=== PATIENT | female | born 1990 | race Caucasian/White ===

== ENCOUNTER 2023-06-03 10:40 | Inpatient (IN) ==
[2023-06-03] MEDS ORDERED: SODIUM CHLORIDE 0.9% 2,000 ML IV ONE (11:02)
[2023-06-03] MEDS ORDERED: ONDANSETRON INJ 2 MG/ML 2 ML VIAL IV STA (11:02)
[2023-06-03] MEDS ORDERED: FAMOTIDINE 20MG IV PUSH 20 MG/5 ML SYR IV STA (11:02)
--- NOTE | 2023-06-03 11:05 | Emergency Department Note ---
Impression & Plan Biloma following surgery, S/P cholecystectomy, Postoperative intra-abdominal abscess, Deaf, Leukocytosis ED Provider Note NAME: KARY STINSON AGE: 32 SEX: F ARRIVES VIA: Walk-In INFORMANT: Patient ED PROVIDER(S): Gaetano Merrill MD CHIEF COMPLAINT: Nausea, s/p cholecystectomy PLAN: Disposition: Admit MEDICAL DECISION MAKING: The patient is a pleasant 32-year-old deaf woman who communicates via lipreading and ASL who presents to the emergency department accompanied by her friend for evaluation of nausea for the couple of days after she ate pizza in the setting of having a cholecystectomy approximately 3 weeks ago in [facility] at [facility]. Patient acknowledges that this was the first time she ate a meal such as this after her surgery. She reports having some loose stool afterwards. She reports she has had some constipation fluctuating with loose stool since her surgery and has needed an enema at certain points. They report that the patient was hospitalized for a week or so and describes having MIKE drains following surgery which were removed after 2-3 days. They report that even after discharge they were noticing some drainage from one of the MIKE sites for which they describe being reassured that this will resolve with time and subsequently has. They deny any fevers, cough, congestion, urinary symptoms. She reports that she has had abdominal bloating and pain since the surgery that has persisted. She is burping more and has been taking Gas-X. History obtained using iPad embedded firmware engineer. On my evaluation the patient is no acute distress, afebrile stable vital signs. She does have mild to moderate tenderness of the upper abdomen without guarding or rebound. WBC 16.6K with neutrophil predominance but no left shift, nonspecific. Hemoglobin within normal limits. Platelets 477K nonspecific and likely reacti ve. Chemistry without metabolic acidosis. ALT mildly elevated 96 and alk phos of 144 and LFTs otherwise normal including normal total and direct bilirubin. Lipase is normal. hCG negative. UA 1+ ketones consistent the patient clinically dry appearance. CT abdomen/pelvis was performed and demonstrates complex multiloculated fluid collection within the gallbladder fossa that measures 6 x 6.5 x 7 cm and extends along the anterior aspect of the gastroduodenal junction with surrounding inflammation as well as erosive internal complexity/hyperdensity. Note is made of CBD stent in place without intrahepatic ductal dilatation. Differential diagnosis includes postoperative hematoma/seroma, biloma, and or abscess. Note of complex hyperdense material within the collection may represent small amount of extravasated contrast or less likely retained gallstones. Case was discussed with general surgery on-call Dr. Farley who was able to review patient's imaging. Appreciate consultation and recommendations. Agrees that patient can be managed at our facility at this time as intervention is not considered to be surgical but anticipated to be addressed through IR who he available on Sunday and in the interim can be admitted to hospital service for IV antibiotics. She will be available for inpatient team consultation. I did review this plan with the patient and her friend/partner at the bedside and they did agree with this plan. Treatment initiated with IV Zosyn. Case was discussed with Dr. Denton, [facility] hospitalist, who will evaluate the patient for admission. Triage Nursing notes reviewed and agree them. Prior/outside medical records reviewed Vital Signs: reviewed Differential diagnosis: Gastroenteritis, food borne illness, infections, appendicitis, diverticulitis, inflammatory bowel disease, obstruction, GI bleed, biliary pathology, volvulus, as well as other pathologies. ER treatment provided: See below. Diagnostics interpreted by me: Cardiac Monitoring: An order for continuous cardiac monitoring was placed and demonstrated sinus tachycardia, 121 bpm, no ectopy. Laboratory studies: See below Imaging studies: See below Consultation(s): Dr. Farley, General surgery on-call. Dr. Denton, [facility] hospitalist. HPI: The patient is a pleasant 32-year-old deaf woman who communicates via lipreading and ASL who presents emerged department accompanied by her friend for evaluation of nausea for the couple of days after she ate pizza in the setting of having a cholecystectomy approximately 3 weeks ago in [facility] at [facility]. Patient acknowledges that this was the first time she ate a meal such as this after her surgery. She reports having some loose stool afterwards. She reports she has had some constipation fluctuating with loose stool since her surgery and has needed an enema at certain points. They report that the patient was hospitalized for a week or so and describes having MIKE drains following surgery which were removed after 2-3 days. They report that even after discharge they were noticing some drainage from one of the MIKE sites for which they describe being reassured that this will resolve with time and subsequently has. They deny any fevers, cough, congestion, urinary symptoms. She reports that she has had abdominal bloating and pain since the surgery that has persisted. She is burping more and has been taking Gas-X. History obtained using iPad embedded firmware engineer. ROS: See above HPI for pertinent positives & negatives. A total of 10 systems reviewed and were otherwise negative. VITALS:See Below PHYSICAL EXAMINATION: GENERAL: Awake, alert, well-appearing, in no distress HENT: Normocephalic, atraumatic. Oropharynx with dry mucous membranes and otherwise unremarkable. EYES: Normal conjunctiva. Sclera non-icteric. NECK: Supple. No nuchal rigidity. FROM. No JVD. RESPIRATORY: Clear to auscultation. CARDIAC: Regular rate, normal rhythm. Extremities warm and well perfused. Pulses equal. ABDOMEN: Soft, non-distended. Mild-moderate upper abdominal tenderness to palpation. No rebound or guarding. No masses. RECTAL: Deferred. MUSCULOSKELETAL: Chest examination reveals no tenderness. The back is symmetrical on inspection without obvious abnormality. There is no CVA tendern ess to palpation. No joint edema. LOWER EXTREMITIES: Calves are equal size bilaterally and non-tender. No edema. No discoloration. NEURO: Normal sensorium. No sensory or motor deficits noted. SKIN: No rash or jaundice noted. Gaetano Merrill MD Past Med/Surg History Medical History Biloma following surgery Deaf Surgical History S/P cholecystectomy Social History Smoking Status: Never smoker Hx Alcohol Use: No Hx Substance Use: No Preferred Language: Production Service Manager Required: Yes Beliefs That Will Affect Care: None Current Living Situation: Spouse Feels Safe at Home: Yes Safety Concerns: Feels Safe At This Time Allergies Allergies Allergy/AdvReac Type Severity Reaction Status Date / Time No Known Allergies Allergy Unverified 06/03/23 15:54 Home Meds Home Medications Medication Instructions Recorded Confirmed cyclobenzaprine 10 mg tablet 10 mg PO Q8H 06/03/23 06/03/23 gabapentin 300 mg capsule 300 mg PO Q8H 06/03/23 06/03/23 Results & Data (ED) Vital Signs Vital Signs - 24 hr 06/03/23 10:51 06/03/23 12:29 06/03/23 14:21 Temperature 36.6 C Temperature Source Temporal Artery Scan Pulse Rate 121 H 96 H Pulse Rate [Right Finger] 88 Pulse Rhythm [Right Finger] Regular Pulse Strength [Right Finger] Normal Respiratory Rate 16 16 Respiratory Effort / Characteristics Non-Labored Non-Labored Respiratory Depth Normal Normal Respiratory Pattern Regular Blood Pressure 129/86 Blood Pressure [Left Arm] 115/78 Blood Pressure Mean 100 Blood Pressure Mean [Left Arm] 90 Blood Pressure Position [Left Arm] Sitting Pulse Oximetry 97 99 Oxygen Delivery Method Room Air Room Air Sepsis Recent Fever Within 48 Hours No Sepsis New/Unexplained Change in Mental Status No Sepsis Action Taken by Nursing No Action Required Laboratory Data Attestation: I reviewed the patient's lab results. 06/03/23 11:52 06/03/23 11:52 Lab Results 06/03/23 06/03/23 06/03/23 Range/Units 11:52 11:52 11:52 WBC 16.64 H (4.8-10.8) K/ul RBC 4.07 L (4.20-5.40) M/uL Hgb 12.0 (12.0-16.0) g/dl Hct 36.6 L (37.0-47.0) % MCV 89.9 (80.0-100.0) fL MCH 29.5 (25.0-34.0) pg MCHC 32.8 (32.0-36.0) g/dL RDW Std Deviation 43.4 (36.4-46.3) fL RDW Coeff of Paolo 13.2 (11.5-14.5) % Plt Count 477 H (130-400) K/uL MPV 10.6 (9.4-12.4) fL Immature Gran % (Auto) 0.3 % Neut % (Auto) 84.1 % Lymph % (Auto) 6.5 % [place] % (Auto) 8.9 % Eos % (Auto) 0.0 % Baso % (Auto) 0.2 % Neut # (Auto) 13.99 H (1.40-6.50) K/uL Lymph # (Auto) 1.08 L (1.20-3.40) K/uL [place] # (Auto) 1.48 H (0.11-0.59) K/uL Eos # (Auto) 0.00 (0.00-0.50) K/uL Baso # (Auto) 0.04 (0.00-0.20) K/uL Immature Gran # (Auto) 0.05 (0.01-0.20) K/uL Sodium 136 (136-145) mmol/L Potassium 3.6 (3.5-5.1) mmol/L Chloride 102 (98-107) mmol/L Carbon Dioxide 25 (21-32) mmol/L Anion Gap 9 (3-11) BUN 10 (6-23) mg/dl Creatinine 0.71 (0.6-1.2) mg/dl Est Cr Clr Drug Dosing Not Reportable Est GFR ( Amer) 131.5 ml/min Est GFR (Non-Af Amer) 113.5 ml/min BUN/Creatinine Ratio 14.1 (10-20) Glucose 99 (70-99(Fasting)) mg/dl Calcium 9.3 (8.6-10.3) mg/dl Total Bilirubin 0.6 (0.2-1.0) mg/dl Direct Bilirubin 0.1 (0-0.2) mg/dl AST 25 (13-39) U/L ALT 96 H (7-52) U/L Alkaline Phosphatase 144 H (34-104) U/L Total Protein 8.0 (6.0-8.3) gm/dl Albumin 3.8 (3.4-5.0) gm/dl Globulin 4.2 H (2.5-4.0) gm/dl Albumin/Globulin Ratio 0.9 (0.9-2) Lipase 14 (11-82) U/L HCG, Qual Negative (Negative) Urine Color Urine Appearance (Clear) Urine pH (4.5-7.5) Ur Specific [place] (1.000-1.030) Urine Protein (Negative) Urine Glucose (UA) (Negative) Urine Ketones (Negative) Urine Blood (Negative) Urine Nitrite (Negative) Urine Bilirubin (Negative) Urine Urobilinogen (Negative) Ur Leukocyte Esterase (Negative) Urine RBC (0-4) /hpf Urine WBC (0-5) /hpf Ur Epithelial Cells (0-5) /lpf Urine Bacteria (Negative) Urine Mucus (None Prsent) 06/03/23 Range/Units 12:33 WBC (4.8-10.8) K/ul RBC (4.20-5.40) M/uL Hgb (12.0-16.0) g/dl Hct (37.0-47.0) % MCV (80.0-100.0) fL MCH (25.0-34.0) pg MCHC (32.0-36.0) g/dL RDW Std Deviation (36.4-46.3) fL RDW Coeff of Paolo (11.5-14.5) % Plt Count (130-400) K/uL MPV (9.4-12.4) fL Immature Gran % (Auto) % Neut % (Auto) % Lymph % (Auto) % [place] % (Auto) % Eos % (Auto) % Baso % (Auto) % Neut # (Auto) (1.40-6.50) K/uL Lymph # (Auto) (1.20-3.40) K/uL [place] # (Auto) (0.11-0.59) K/uL Eos # (Auto) (0.00-0.50) K/uL Baso # (Auto) (0.00-0.20) K/uL Immature Gran # (Auto) (0.01-0.20) K/uL Sodium (136-145) mmol/L Potassium (3.5-5.1) mmol/L Chloride (98-107) mmol/L Carbon Dioxide (21-32) mmol/L Anion Gap (3-11) BUN (6-23) mg/dl Creatinine (0.6-1.2) mg/dl Est Cr Clr Drug Dosing Est GFR ( Amer) ml/min Est GFR (Non-Af Amer) ml/min BUN/Creatinine Ratio (10-20) Glucose (70-99(Fasting)) mg/dl Calcium (8.6-10.3) mg/dl Total Bilirubin (0.2-1.0) mg/dl Direct Bilirubin (0-0.2) mg/dl AST (13-39) U/L ALT (7-52) U/L Alkaline Phosphatase (34-104) U/L Total Protein (6.0-8.3) gm/dl Albumin (3.4-5.0) gm/dl Globulin (2.5-4.0) gm/dl Albumin/Globulin Ratio (0.9-2) Lipase (11-82) U/L HCG, Qual (Negative) Urine Color Yellow Urine Appearance Clear (Clear) Urine pH 5.5 (4.5-7.5) Ur Specific [place] >= 1.030 (1.000-1.030) Urine Protein 1+ H (Negative) Urine Glucose (UA) Negative (Negative) Urine Ketones 1+ H (Negative) Urine Blood Trace-lysed H (Negative) Urine Nitrite Negative (Negative) Urine Bilirubin 1+ H (Negative) Urine Urobilinogen Negative (Negative) Ur Leukocyte Esterase Negative (Negative) Urine RBC 0-4 (0-4) /hpf Urine WBC 0-5 (0-5) /hpf Ur Epithelial Cells 5-10 H (0-5) /lpf Urine Bacteria 1+ H (Negative) Urine Mucus Present A (None Prsent) Administered Medications Enoxaparin Sodium (Enoxaparin Inj 40 Mg/0.4 Ml Syr) 40 mg SQ Q24H [facility] Stop: 07/03/23 20:59 Last Admin: 06/03/23 20:54 Dose: 40 mg Documented By: AMANDA Hydromorphone HCl (Hydromorphone Inj 1 Mg/Ml Syringe) 1 mg IV Q3H PRN PRN Reason: Severe Pain (7,8,9,10) on NRS Stop: 06/17/23 19:11 Last Admin: 06/03/23 20:24 Dose: 1 mg Documented By: AMANDA Acetaminophen (Ofirmev) 1,000 mg in 100 mls @ 400 mls/hr IV Q8H PRN PRN Reason: Fever/Mild Pain (Pain 1,2,3) Stop: 06/06/23 19:11 Last Infusion: 06/03/23 21:10 Dose: 0 mls/hr Documented By: Admin: 06/03/23 20:24 Dose: 400 mls/hr Documented By: AMANDA Lactated Ringer's (Lr) 1,000 mls @ 120 mls/hr IV .Q8H20M [facility] Stop: 07/03/23 19:11 Last Admin: 06/03/23 20:23 Dose: 120 mls/hr Documented By: AMANDA Discontinued Medications Sodium Chloride (Nss 1000ml) 2,000 mls @ 999 mls/hr IV .Q2H1M ONE Stop: 06/03/23 13:02 Last Infusion: 06/03/23 16:53 Dose: 0 mls/hr Documented By: Admin: 06/03/23 11:54 Dose: 999 mls/hr Documented By: ROLY Famotidine (Pepcid 20mg Iv Push) 20 mg in 5 mls @ 2.5 mls/min IV NOW STA Stop: 06/03/23 11:03 Last Admin: 06/03/23 12:23 Dose: 2.5 mls/min Documented By: ROLY Acetaminophen (Ofirmev) 1,000 mg in 100 mls @ 400 mls/hr IV NOW STA Stop: 06/03/23 12:09 Last Infusion: 06/03/23 16:52 Dose: 400 mls/hr Documented By: Admin: 06/03/23 12:44 Dose: 400 mls/hr Documented By: ROLY Piperacillin Sod/Tazobactam Sod (Zosyn) 4.5 gm in 120 mls @ 240 mls/hr IV NOW ONE Stop: 06/03/23 16:13 Last Infusion: 06/03/23 19:52 Dose: 0 mls/hr Documented By: Admin: 06/03/23 16:53 Dose: 240 mls/hr Documented By: ROLY Ioversol (Optiray 320 100ml) 94 ml IV ONCE ONE Stop: 06/03/23 13:42 Last Admin: 06/03/23 13:42 Dose: 94 ml Documented By: BAILEY Miscellaneous (Patient's Height &/Or Weight Needed) 1 each N/A NOW STA Stop: 06/03/23 19:16 Last Admin: 06/03/23 20:53 Dose: 1 each Documented By: AMANDA Ondansetron HCl (Ondansetron Inj 2 Mg/Ml 2 Ml Vial) 4 mg IV NOW STA Stop: 06/03/23 11:03 Last Admin: 06/03/23 12:23 Dose: 4 mg Documented By: ROLY Imaging Data Radiologist's Impression: Abdomen/Pelvis CT 06/03/23 11:45 CT SCAN OF THE ABDOMEN AND PELVIS WITH IV CONTRAST CLINICAL HISTORY: Nausea and vomiting. Generalized abdominal pain. 3 weeks status post cholecystectomy. COMPARISON STUDY: No priors. TECHNIQUE: Following the IV administration of 94 cc of Optiray 320, CT scan of the abdomen and pelvis is performed from the lung bases to the proximal femora. Images are reviewed in the axial, sagittal, and coronal planes. IV contrast was administered without complication. A dose lowering technique was utilized adhering to the principles of ALARA. CT DOSE: 1486.82 mGy.cm FINDINGS: Lung bases: The heart is normal in size and without pericardial effusion. The lung bases are clear. Liver: The contrast-enhanced liver is normal in size, contour, and attenuation. There is no intrahepatic biliary ductal dilatation. The hepatic veins and portal veins are patent. A fluid collection in gallbladder fossa scallops the adjacent hepatic capsule. See below. Gallbladder: The gallbladder is surgically absent noting clips in the gallbladder fossa. There is a complex multiloculated fluid collection within the gallbladder fossa. This measures approximately 6 x 6.5 x 7 cm in aggregate dimension as seen on image 28, and extends along the anterior aspect of the ga stroduodenal junction. There is surrounding inflammation, as well as erosive internal complexity/hyperdensity. These are best seen on axial image #111. A common bile duct stent is in place. Spleen: Normal in size and attenuation. Pancreas: Unremarkable. Adrenal glands: Unremarkable. Kidneys: The contrast enhanced kidneys are normal in size and without hydronephrosis. The kidneys enhance symmetrically. Abdominal vasculature: The abdominal aorta is normal in course and caliber. Bowel: The fluid collection discussed above mildly narrows the lumen of the adjacent stomach and duodenum. No bowel obstruction is seen. The appendix is well-visualized and normal. Peritoneum: There is no intraperitoneal free air or abdominal ascites. There is a small fat-containing umbilical hernia. Induration within the right abdominal wall is likely related to the laparoscopy. Lymphadenopathy: None. Pelvic viscera: The bladder, uterus, and adnexa are normal as visualized noting bilateral ovarian follicles. There is trace free fluid in the cul-de-sac. Skeletal structures: No lytic or blastic lesions are seen. IMPRESSION: 1. The gallbladder is surgically absent. 2. There is a complex/multiloculated fluid collection identified in the gallbladder fossa extending along the anterior aspect of the stomach/duodenum as detailed above. Differential considerations include a postoperative hematoma, seroma, biloma, and/or abscess. 3. Complex/hyperdense material within the collection may represent debris. A small amount of extravasated contrast or less likely retained gallstones could also potentially have this appearance. Clinical correlation will be essential. 4. A common bile duct stent is in place and the intrahepatic bile ducts are normal in caliber. 5. The fluid collection mildly narrows the lumen of the distal stomach and duodenum. 6. Trace free fluid in the cul-de-sac is nonspecific and likely physiologic. 7. Additional findings as above. ACT 112: Negative or not required by law. Electronically signed by: Robert Blair M.D. 06/03/2023 1:57 PM Discharge Plan Visit Data Chief Complaint: Nausea Stated Complaint: NAUSEA S/P GALL BLADDER REMOVAL ED Provider: Gaetano Merrill Discharge Problem: Biloma following surgery, S/P cholecystectomy, Postoperative intra-abdominal abscess, Deaf, Leukocytosis Patient Disposition: Admitted As Inpatient Discharge Instructions Interventions: ED Discharge Assessment Last Done: 06/03/23 19:53
[2023-06-03] MEDS ORDERED: ACETAMINOPHEN 1,000 MG/100 ML VIAL IV STA (11:55)
[2023-06-03 12:23] LABS: Basophils # (auto) 0.04 K/uL (0.00-0.20); Basophils % (auto) 0.2 %; Hematocrit (blood only) 36.6 % (37.0-47.0); Immature Granulocytes # (auto) 0.05 K/uL (0.01-0.20); Immature Granulocytes % (auto) 0.3 %; Lymphocytes # (auto) 1.08 K/uL (1.20-3.40); Lymphocytes % (auto) 6.5 %; Mean Corpuscular Hemoglobin 29.5 pg (25.0-34.0); Mean Corpuscular Hgb Conc 32.8 g/dL (32.0-36.0); Mean Corpuscular Volume 89.9 fL (80.0-100.0); Mean Platelet Volume 10.6 fL (9.4-12.4); Monocytes # (auto) 1.48 K/uL (0.11-0.59); Monocytes % (auto) 8.9 %; Neutrophils # (auto) 13.99 K/uL (1.40-6.50); Neutrophils % (auto) 84.1 %; Platelet Count 477 K/uL (130-400); RDW Coefficient of Variation 13.2 % (11.5-14.5); RDW Standard Deviation 43.4 fL (36.4-46.3); Red Blood Count 4.07 M/uL (4.20-5.40); White Blood Count 16.64 K/ul (4.8-10.8)
[2023-06-03 12:43] LABS: Alanine Aminotransferase 96 U/L (7-52); Albumin Globulin Ratio 0.9 (0.9-2); Albumin Level 3.8 gm/dl (3.4-5.0); Alkaline Phosphatase 144 U/L (34-104); Anion Gap 9 (3-11); Aspartate Aminotransferase 25 U/L (13-39); BUN Creatinine Ratio 14.1 (10-20); Bilirubin Direct 0.1 mg/dl (0-0.2); Bilirubin,Total 0.6 mg/dl (0.2-1.0); Blood Urea Nitrogen 10 mg/dl (6-23); Calcium 9.3 mg/dl (8.6-10.3); Carbon Dioxide 25 mmol/L (21-32); Chloride 102 mmol/L (98-107); Est GFR (African American) 131.5 ml/min; Est GFR (Non-African American) 113.5 ml/min; Globulin 4.2 gm/dl (2.5-4.0); Glucose 99 mg/dl (70-99(Fasting)); Lipase 14 U/L (11-82); Potassium 3.6 mmol/L (3.5-5.1); Pregnancy Test, Serum Negative (Negative); Sodium 136 mmol/L (136-145)
[2023-06-03 13:08] LABS: Appearance Urine Clear (Clear); Bilirubin Urine 1+ (Negative); Blood Urine Trace-lysed (Negative); Color Urine Yellow; Glucose Urine UA Negative (Negative); Ketones Urine 1+ (Negative); Leukocyte Esterase Urine Negative (Negative); Nitrite Urine Negative (Negative); Protein Urine 1+ (Negative); Specific Gravity Urine >= 1.030 (1.000-1.030); Urobilinogen Urine Negative (Negative); pH Urine 5.5 (4.5-7.5)
[2023-06-03 13:15] LABS: Bacteria Urine 1+ (Negative); Mucus Urine Present (None Prsent); RBC Urine 0-4 /hpf (0-4); WBC Urine 0-5 /hpf (0-5)
[2023-06-03] MEDS ORDERED: OPTIRAY 320 100ml IV ONE (13:41)
--- NOTE | 2023-06-03 14:00 | CT Scan Report ---
CT SCAN OF THE ABDOMEN AND PELVIS WITH IV CONTRAST CLINICAL HISTORY: Nausea and vomiting. Generalized abdominal pain. 3 weeks status post cholecystect anika. COMPARISON STUDY: No priors. TECHNIQUE: Following the IV administration of 94 cc of Optiray 320, CT scan of the abdomen and pelvi s is performed from the lung bases to the proximal femora. Images are reviewed in the axial, sagittal , and coronal planes. IV contrast was administered without complication. A dose lowering technique wa s utilized adhering to the principles of ALARA. CT DOSE: 1486.82 mGy.cm FINDINGS: Lung bases: The heart is normal in size and without pericardial effusion. The lung bases are clear. Liver: The contrast-enhanced liver is normal in size, contour, and attenuation. There is no intrahepa tic biliary ductal dilatation. The hepatic veins and portal veins are patent. A fluid collection in g allbladder fossa scallops the adjacent hepatic capsule. See below. Gallbladder: The gallbladder is surgically absent noting clips in the gallbladder fossa. There is a c omplex multiloculated fluid collection within the gallbladder fossa. This measures approximately 6 x 6.5 x 7 cm in aggregate dimension as seen on image 28, and extends along the anterior aspect of the g astroduodenal junction. There is surrounding inflammation, as well as erosive internal complexity/hyp erdensity. These are best seen on axial image #111. A common bile duct stent is in place. Spleen: Normal in size and attenuation. Pancreas: Unremarkable. Adrenal glands: Unremarkable. Kidneys: The contrast enhanced kidneys are normal in size and without hydronephrosis. The kidneys enh ance symmetrically. Abdominal vasculature: The abdominal aorta is normal in course and caliber. Bowel: The fluid collection discussed above mildly narrows the lumen of the adjacent stomach and duod enum. No bowel obstruction is seen. The appendix is well-visualized and normal. Peritoneum: There is no intraperitoneal free air or abdominal ascites. There is a small fat-containin g umbilical hernia. Induration within the right abdominal wall is likely related to the laparoscopy. Lymphadenopathy: None. Pelvic viscera: The bladder, uterus, and adnexa are normal as visualized noting bilateral ovarian fol licles. There is trace free fluid in the cul-de-sac. Skeletal structures: No lytic or blastic lesions are seen. IMPRESSION: 1. The gallbladder is surgically absent. 2. There is a complex/multiloculated fluid collection identified in the gallbladder fossa extending a long the anterior aspect of the stomach/duodenum as detailed above. Differential considerations inclu de a postoperative hematoma, seroma, biloma, and/or abscess. 3. Complex/hyperdense material within the collection may represent debris. A small amount of extravas ated contrast or less likely retained gallstones could also potentially have this appearance. Clinica l correlation will be essential. 4. A common bile duct stent is in place and the intrahepatic bile ducts are normal in caliber. 5. The fluid collection mildly narrows the lumen of the distal stomach and duodenum. 6. Trace free fluid in the cul-de-sac is nonspecific and likely physiologic. 7. Additional findings as above. ACT 112: Negative or not required by law. Electronically signed by: Robert Blair M.D. 06/03/2023 1:57 PM
[2023-06-03] MEDS ORDERED: PIPERACILLIN/TAZOBACTAM 4.5 GM/120 ML BAG IV ONE (15:44)
--- NOTE | 2023-06-03 15:58 | History & Physical Report ---
Date of Service June 03, 2023 Assessment & Plan (1) Biloma following surgery: Plan: Postoperative abscess versus seroma Patient with cholecystectomy 3 weeks ago Presents with nausea/vomiting/diarrhea after eating pizza CTA/P: CTA/P with IV contrast: Gallbladder absent. Complex multiloculated fluid collection in gallbladder fossa suspicious for postoperative hematoma/seroma/Bileoma/abscess. Bile duct stent in place. Trace free fluid in cul-de-sac nonspecific. Patient does have a leukocytosis Renal function normal - Surgery consulted. Case reviewed w/ Dr. Farley. OK to handle here, suspect bilioma. [place] will be here sunday, recommended IR guided on Sunday. Until then recommend n.p.o. today, clears tomorrow if no pain otherwise continue n.p.o. on . Continue IV antibiotics through drainage on Sunday. If IR is not able to drain this then can be approached endoscopically, general surgical approach not recommended Zosyn continued UTI UA infected appearing, covered with antibiotics as noted above Follow UCx Deafness At baseline, no change. 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 Hold prior to IR drainage. Diet: N.p.o. Disposition: Medical/surgical CODE STATUS: Full code (2) Postoperative intra-abdominal abscess: (3) Deaf: History of Present Illness Primary Care Provider: NO PCP Darling is a 32-year-old patient with deafness who communicates via lipreading and sign language who presents with nausea/vomiting after eating pizza. She had a cholecystectomy 3 weeks ago this was her first greasy meal since that time. Loose bowel movements after patient did have issues with constipation following her cholecystectomy and had prolonged MIKE drains which were removed after 2 to 3 weeks. 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 No GIB. Vomiting without green/bile/blood [facility] with Ex Tasha with who she is on good terms and helps care for her, no family in [place] to help while she was recovering. No other medhx Medical History: Reviewed Medications: Reviewed Surgical History: Reviewed Family history: Reviewed Allergies: Reviewed Social History: No tobacco/etoh hx Code Status: Full Allergies Allergy/AdvReac Type Severity Reaction Status Date / Time No Known Allergies Allergy Unverified 06/03/23 15:54 Home Medications Medication Instructions Recorded Confirmed Type cyclobenzaprine 10 mg tablet 10 mg PO Q8H 06/03/23 06/03/23 History gabapentin 300 mg capsule 300 mg PO Q8H 06/03/23 06/03/23 History Past Med/Surg History Medical History (Updated 06/03/23 @ 16:34 by Ricardo Denton MD) Biloma following surgery Deaf Surgical History (Updated 06/03/23 @ 16:32 by Ricardo Denton MD) S/P cholecystectomy Social History Preferred Language: Paragu[place] Review of Systems Review of Systems: All systems reviewed & are unremarkable except as noted in HPI & below Physical Exam Physical Exam: General: A&Ox3. NAD. Cooperative. HEENT: Atraumatic, normocephalic. Vision intact. Deaf, communicates via writing, lip reading, and ASL. Pulm: CTAB A&P. -wheezes, -rales, -rhonchi. Symmetrical chest rise. No increased work of breathing. No respiratory distress. Cardiac: RRR, -mrg. Radial pulses intact and symmetrical. Abdominal: 4x well healed abdominal incisions. RUQ ttp. no rebound, abd soft. No fluid expressed from surgical sites, RLQ site not yet completely healed otherwise sites healing and no dehiscence. BS present Results & Data Results & Data Vital Signs (Past 12 Hours) Vital Signs Temp Pulse Pulse Resp BP BP Pulse Ox 06/03/23 14:21 88 16 115/78 99 06/03/23 12:29 96 H 06/03/23 10:51 36.6 C 121 H 16 129/86 97 O2 Del Method 06/03/23 14:21 Room Air 06/03/23 12:29 06/03/23 10:51 Room Air PG Care Time/CCT Total # of Minutes Spent Total Time Spent with Patient: Total time spent is greater than 50% in coordination of care (as documented) at patient's floor/unit and/or counseling patient: Coding Level of Care Code 12569 INT INP/OBS CARE MIN Diagnoses Biloma following surgery T81.89XA; K66.8 Postoperative intra-abdominal abscess T81.43XA Deaf H91.90
[2023-06-03] MEDS ORDERED: Patient's HEIGHT &/or WEIGHT Needed STA (19:15)
[2023-06-03] MEDS: LACTATED RINGER'S 1,000 ML IV SCH (20:23)
[2023-06-03] MEDS: ACETAMINOPHEN 1,000 MG/100 ML VIAL IV PRN (20:24)
[2023-06-03] MEDS: HYDROmorphone INJ 1 MG/ML SYRINGE IV PRN (20:24)
[2023-06-03] MEDS: ENOXAPARIN INJ 40 MG/0.4 ML SYR SQ SCH (20:54)
[2023-06-03] MEDS: PIPERACILLIN/TAZOBACTAM 4.5 GM in DEXTROSE 5% 100 ML IV SCH (21:36)
[2023-06-04] MEDS: LACTATED RINGER'S 1,000 ML IV SCH ×2 (04:58→12:23)
[2023-06-04] MEDS: PIPERACILLIN/TAZOBACTAM 4.5 GM in DEXTROSE 5% 100 ML IV SCH ×3 (04:58→21:19)
[2023-06-04] MEDS: ACETAMINOPHEN 1,000 MG/100 ML VIAL IV PRN ×2 (05:34→19:36)
[2023-06-04 07:30] LABS: Basophils # (auto) 0.06 K/uL (0.00-0.20); Basophils % (auto) 0.4 %; Eosinophils # (auto) 0.04 K/uL (0.00-0.50); Eosinophils % (auto) 0.3 %; Hematocrit (blood only) 30.6 % (37.0-47.0); Hemoglobin 9.9 g/dl (12.0-16.0); Immature Granulocytes # (auto) 0.05 K/uL (0.01-0.20); Immature Granulocytes % (auto) 0.3 %; Lymphocytes # (auto) 0.91 K/uL (1.20-3.40); Lymphocytes % (auto) 6.3 %; Mean Corpuscular Hemoglobin 29.2 pg (25.0-34.0); Mean Corpuscular Hgb Conc 32.4 g/dL (32.0-36.0); Mean Corpuscular Volume 90.3 fL (80.0-100.0); Mean Platelet Volume 10.4 fL (9.4-12.4); Monocytes # (auto) 1.34 K/uL (0.11-0.59); Monocytes % (auto) 9.2 %; Neutrophils # (auto) 12.09 K/uL (1.40-6.50); Neutrophils % (auto) 83.5 %; Platelet Count 395 K/uL (130-400); RDW Coefficient of Variation 13.3 % (11.5-14.5); RDW Standard Deviation 44.3 fL (36.4-46.3); Red Blood Count 3.39 M/uL (4.20-5.40); White Blood Count 14.49 K/ul (4.8-10.8)
[2023-06-04 07:34] LABS: BUN Creatinine Ratio 9.6 (10-20); Calcium 8.3 mg/dl (8.6-10.3); Creatinine Clr Calc Pharmacy 127.9 ml/min; Est GFR (African American) 127.2 ml/min; Est GFR (Non-African American) 109.7 ml/min; Magnesium 1.9 mg/dl (1.7-2.4); Phosphorus 2.7 mg/dl (2.5-4.9); Potassium 3.6 mmol/L (3.5-5.1)
[2023-06-04] MEDS: HYDROmorphone INJ 0.5 MG/0.5 ML SYR IV PRN ×3 (07:42→19:23)
[2023-06-04] MEDS: ONDANSETRON INJ 2 MG/ML 2 ML VIAL IV PRN (12:23)
--- NOTE | 2023-06-04 15:55 | Hospitalist Progress Note ---
Date of Service June 04, 2023 Assessment & Plan (1) Biloma following surgery: Plan: White blood cell count is mildly elevated but she does not appear to be ill enou gh to have a right upper quadrant abscess. She had cholecystectomy [address] scan reveals fluid in the gallbladder fossa with a common bile duct stent present. The gallbladder has been removed. This was done about 3 weeks ago at an outside hospital. Interventional radiology to place right upper quadrant drain tomorrow, June 05. Continue Zosyn for now, day 2. Appreciate surgery consultation and recommendations. (2) Postoperative intra-abdominal abscess: Plan: Right upper quadrant fluid collection in the gallbladder bed may simply be seroma. Anticipate drainage procedure tomorrow, June 05 (3) Urinary tract infection: Plan: Suspected on admission. Continue current IV antibiotic therapy. Await final urine culture results (4) Deaf: Plan: Supportive care (5) Tachycardia: Plan: Appears to be sinus tachycardia. EKG pending. Plan Anticipate eventual discharge to home Admission and Anticipated Discharge Date Admission Date: June 03, 2023 Subjective Alert and oriented. No complaints. Anticipate right upper quadrant drain placement by interventional radiology tomorrow, June 05. She is mildly tachycardic and EKG is pending. She remains on intravenous Zosyn. She is afebrile. White blood cell count trending down. Will allow clear liquids and decrease IV fluids. She is status post cholecystectomy at another hospital about 3 weeks ago Review of Systems 2 Review of Systems: Constitutional-no fever or chills ENT-no blurred vision, no double vision, no epistaxis, no sore throat Respiratory-no cough, no wheezing, no shortness of breath Cardiac-no palpitations, no chest pain, no syncope GI-intermittent nausea after eating. No vomiting, diarrhea, melena, hematochezia -no urinary retention, no urinary incontinence, no dysuria, no hematuria Musculoskeletal-no joint pain, no muscle tenderness Skin-no bruising, no rashes, no pruritus Neuro-no isolated weakness, no paresthesia, no weakness Psych-no depression, no anxiety Physical Exam Physical Exam: General-alert and oriented x3, no fevers, no chills HEENT-head atraumatic and normocephalic, pupils equal and reactive to light, extraocular muscles intact. She is deaf Neck-no lymphadenopathy or thyromegaly, trachea midline Chest-clear to auscultation percussion. No rales wheezing or rhonchi Cardiac-slightly tachycardic regular rhythm, normal S1 and S2 Abdomen-normal bowel sounds, nontender, no hepatosplenomegaly Extremities-no cyanosis, clubbing, or edema Neuro-cranial nerves II through XII intact, motor and sensory function within normal limits, strength symmetrical , no focal deficits Psych-normal affect, normal mood Results & Data Results & Data Vital Signs (Past 12 Hours) Vital Signs Temp Pulse Resp BP Pulse Ox O2 Del Method O2 Flow Rate 06/04/23 14:59 Room Air 06/04/23 14:31 Nasal Cannula 2 06/04/23 14:14 37.5 C 112 H 18 126/84 98 Room Air 06/04/23 07:45 36.9 C 106 H 18 112/68 96 Room Air Laboratory Results 06/04/23 06:42 06/04/23 06:42 PG Care Time/CCT Total # of Minutes Spent Total Time Spent with Patient: Total time spent is greater than 50% in coordination of care (as documented) at patient's floor/unit and/or counseling patient: Coding Level of Care Code 37130 SUB INP/OBS CARE 3/50MIN Diagnoses Biloma following surgery T81.89XA; K66.8 Postoperative intra-abdominal abscess T81.43XA Urinary tract infection N39.0 Deaf H91.90 Tachycardia R00.0
[2023-06-04] MEDS: ENOXAPARIN INJ 40 MG/0.4 ML SYR SQ SCH (21:19)
[2023-06-05] MEDS: LACTATED RINGER'S 1,000 ML IV SCH (01:15)
[2023-06-05] MEDS: PIPERACILLIN/TAZOBACTAM 4.5 GM in DEXTROSE 5% 100 ML IV SCH ×2 (06:05→13:06)
[2023-06-05] MEDS: ONDANSETRON INJ 2 MG/ML 2 ML VIAL IV PRN ×2 (06:26→14:45)
[2023-06-05 06:44] LABS: Hematocrit (blood only) 30.7 % (37.0-47.0); Hemoglobin 10.2 g/dl (12.0-16.0); Mean Corpuscular Hemoglobin 29.5 pg (25.0-34.0); Mean Corpuscular Hgb Conc 33.2 g/dL (32.0-36.0); Mean Corpuscular Volume 88.7 fL (80.0-100.0); Mean Platelet Volume 10.3 fL (9.4-12.4); Platelet Count 399 K/uL (130-400); RDW Coefficient of Variation 13.3 % (11.5-14.5); RDW Standard Deviation 43.4 fL (36.4-46.3); Red Blood Count 3.46 M/uL (4.20-5.40); White Blood Count 14.59 K/ul (4.8-10.8)
[2023-06-05 07:07] LABS: BUN Creatinine Ratio 8.2 (10-20); Calcium 8.4 mg/dl (8.6-10.3); Est GFR (Non-African American) 120.8 ml/min; Potassium 3.4 mmol/L (3.5-5.1)
[2023-06-05 07:14] LABS: Basophils # (auto) 0.03 K/uL (0.00-0.20); Basophils % (auto) 0.2 %; Eosinophils # (auto) 0.09 K/uL (0.00-0.50); Eosinophils % (auto) 0.6 %; Immature Granulocytes # (auto) 0.08 K/uL (0.01-0.20); Immature Granulocytes % (auto) 0.5 %; Lymphocytes # (auto) 1.34 K/uL (1.20-3.40); Lymphocytes % (auto) 9.2 %; Monocytes # (auto) 1.29 K/uL (0.11-0.59); Monocytes % (auto) 8.8 %; Neutrophils # (auto) 11.76 K/uL (1.40-6.50); Neutrophils % (auto) 80.7 %
[2023-06-05] MEDS: HYDROmorphone INJ 0.5 MG/0.5 ML SYR IV PRN ×3 (07:24→22:20)
[2023-06-05] MEDS: D5NSS + 20MEQ KCL 20 MEQ/1,000 ML BAG IV SCH ×2 (10:23→22:17)
--- NOTE | 2023-06-05 13:46 | Hospitalist Progress Note ---
Date of Service June 05, 2023 Assessment & Plan (1) Biloma following surgery: Plan: White blood cell count is mildly elevated but stable. She does not appear to be ill enough to have a right upper quadrant abscess. She had cholecystectomy [address] scan reveals fluid in the gallbladder fossa with a common bile duct stent present. The gallbladder has been removed. This was done about 3 weeks ago at an outside hospital. Interventional radiology to place right upper quadrant drain today, June 05. Continue Zosyn, day 3. Appreciate surgery consultation and recommendations. (2) Postoperative intra-abdominal abscess: Plan: Right upper quadrant fluid collection in the gallbladder bed may simply be seroma. Anticipate drainage procedure today, June 05 (3) Urinary tract infection: Plan: Suspected on admission. Continue current IV antibiotic therapy. Await final urine culture results (4) Deaf: Plan: Supportive care (5) Tachycardia: Plan: Sinus mechanism. No intervention necessary at this time Plan Anticipate eventual discharge to home Admission and Anticipated Discharge Date Admission Date: June 03, 2023 Subjective Alert and oriented. The patient was seen earlier this morning before placement of the abdominal drain. She remains on Zosyn, day 3. White count remains at 14,000. Potassium replacement underway. Continue clear liquid diet for now. Review of Systems Review of Systems: Constitutional-no fever or chills ENT-no blurred vision, no double vision, no epistaxis, no sore throat Respiratory-no cough, no wheezing, no shortness of breath Cardiac-no palpitations, no chest pain, no syncope GI-intermittent nausea after eating. No vomiting, diarrhea, melena, hematochezia -no urinary retention, no urinary incontinence, no dysuria, no hematuria Musculoskeletal-no joint pain, no muscle tenderness Skin-no bruising, no rashes, no pruritus Neuro-no isolated weakness, no paresthesia, no weakness Psych-no depression, no anxiety Physical Exam Physical Exam: General-alert and oriented x3, no fevers, no chills HEENT-head atraumatic and normocephalic, pupils equal and reactive to light, extraocular muscles intact. She is deaf Neck-no lymphadenopathy or thyromegaly, trachea midline Chest-clear to auscultation percussion. No rales wheezing or rhonchi Cardiac-slightly tachycardic regular rhythm, normal S1 and S2 Abdomen-normal bowel sounds, nontender, no hepatosplenomegaly Extremities-no cyanosis, clubbing, or edema Neuro-cranial nerves II through XII intact, motor and sensory function within normal limits, strength symmetrical , no focal deficits Psych-normal affect, normal mood Results & Data Results & Data Vital Signs (Past 12 Hours) Vital Signs Temp Pulse Resp BP Pulse Ox O2 Del Method 06/05/23 09:31 37.2 C 110 H 16 132/84 96 Room Air Laboratory Results 06/05/23 06:08 06/05/23 06:08 PG Care Time/CCT Total # of Minutes Spent Total Time Spent with Patient: Total time spent is greater than 50% in coordination of care (as documented) at patient's floor/unit and/or counseling patient: Coding Level of Care Code 06278 SUB INP/OBS CARE 2/35MIN Diagnoses Biloma following surgery T81.89XA; K66.8 Postoperative intra-abdominal abscess T81.43XA Urinary tract infection N39.0 Deaf H91.90 Tachycardia R00.0
[2023-06-05] MEDS: HYDROmorphone INJ 1 MG/ML SYRINGE IV PRN (16:19)
--- NOTE | 2023-06-05 16:52 | Surgery Consultation ---
Date of Consultation June 05, 2023 Assessment & Plan (1) Seroma: This could be a biloma with bile leak or an abscess although there is no gas or thickening of the area around this area We will continue on IV antibiotics and current full liquids We will try to obtain a HIDA scan to look for a leak and also have the GI doctor see her If she requires more intensive intervention she may need to be transferred to [place] I do not believe she wants to go back to [facility] History of Present Illness Attending Physician: Mike Frye MD History of Present Illness 32-year-old female who is admitted to the hospital with a subhepatic fluid collection status post laparoscopic cholecystectomy at [facility] in mid May and discharged 05/20/2023 She apparently had a MIKE drain in place for 2 weeks and apparently was draining bile and she also has a biliary stent likely status post ERCP Her white count is mildly elevated at 14.5 with mild elevation of AST and ALT Apparently our interventional radiology are not able to place a drain which I am not sure she needs urgently She seems to be taking p.o. 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 Beliefs That Will Affect Care: None Current Living Situation: Spouse Feels Safe at Home: Yes Safety Concerns: Feels Safe At This Time Review of Systems Review of Systems: All systems reviewed & are unremarkable except as noted in HPI & below Physical Exam Physical Exam: She is deaf Patient is awake and alert in no distress normally responsive She is breathing comfortably Her sclera are anicteric Her abdomen is soft and she does have some mild tenderness in the right upper quadrant Extremities are well-perfused warm and dry She is awake and alert Results & Data Vital Signs (Past 12 Hours) Vital Signs Temp Pulse Resp BP BP Pulse Ox O2 Del Method 06/05/23 15:54 36.9 C 97 H 16 133/86 100 Nasal Cannula 06/05/23 14:35 36.6 C 105 H 16 118/81 96 Room Air 06/05/23 09:31 37.2 C 110 H 16 132/84 96 Room Air O2 Flow Rate 06/05/23 15:54 2 06/05/23 14:35 06/05/23 09:31 Diagnostic Findings I did review her CAT scan and laboratories PG Care Time/CCT Total # of Minutes Spent Total Time Spent with Patient: Total time spent is greater than 50% in coordination of care (as documented) at patient's floor/unit and/or counseling patient: Coding Level of Care Code 51542 IN/OBS CONSULT LVL 3,45M Diagnoses Seroma
--- NOTE | 2023-06-05 17:08 | Surgery Progress Note ---
Date of Service June 05, 2023 Assessment & Plan (1) Seroma: Plan: This also could be biloma or hematoma Patient apparently had transection of her right hepatic duct according to her discharge papers during the operation They placed a MIKE drain and I am not sure when the stent was [id number] or ERCP They removed her MIKE drain prior to discharge and apparently she had bilious drainage from the drain site She was discharged around 05/20/2023 We will check HIDA scan and asked GI to see her May need additional aggressive intervention at a tertiary care center-possible percutaneous drainage Admission and Anticipated Discharge Date Admission Date: June 03, 2023 Subjective See assessment and plan Results & Data Vital Signs (Past 12 Hours) Vital Signs Temp Pulse Resp BP BP Pulse Ox O2 Del Method 06/05/23 15:54 36.9 C 97 H 16 133/86 100 Nasal Cannula 06/05/23 14:35 36.6 C 105 H 16 118/81 96 Room Air 06/05/23 09:31 37.2 C 110 H 16 132/84 96 Room Air O2 Flow Rate 06/05/23 15:54 2 06/05/23 14:35 06/05/23 09:31 PG Care Time/CCT Total # of Minutes Spent Total Time Spent with Patient: Total time spent is greater than 50% in coordination of care (as documented) at patient's floor/unit and/or counseling patient: Coding Level of Care Code None Diagnoses Seroma
[2023-06-05] MEDS: metroNIDAZOLE 500 MG/100 ML BAG IV SCH (17:40)
--- NOTE | 2023-06-05 18:31 | XRay Report ---
XR chest 1V portable HISTORY: 32 years-old Female dyspnea acute shortness of breath COMPARISON: CT 06/03/2023 TECHNIQUE: AP view of the chest FINDINGS: Cardiomediastinal and hilar silhouettes are within normal limits. Moderate hemidiaphragmatic elevatio n. No pneumothorax, pleural effusion, airspace consolidation or pulmonary edema. The bones appear shayna ssly intact. Mild gaseous distention of the stomach. IMPRESSION: No acute process. ACT 112: Negative or not required by law. The above report was generated using voice recognition software. It may contain grammatical, syntax o r spelling errors. Electronically signed by: Jon Grover M.D. 06/05/2023 6:30 PM
[2023-06-05] MEDS: CIPROFLOXACIN / D5W 400 MG/200 ML BAG IV SCH (18:47)
--- NOTE | 2023-06-05 18:52 | Electrocardiogram Report ---
Test Reason : Blood Pressure : / mmHG Vent. Rate : 107 BPM Atrial Rate : 107 BPM P-R Int : 138 ms QRS Dur : 092 ms QT Int : 344 ms P-R-T Axes : 050 077 057 degrees QTc Int : 459 ms Sinus tachycardia Otherwise normal ECG No previous ECGs available Confirmed by Dev Gillespie ([id number]) on 06/05/2023 6:51:38 PM Referred By: REFERRED SELF Confirmed By:Raphael Gillespie
[2023-06-05] MEDS: ACETAMINOPHEN 1,000 MG/100 ML VIAL IV PRN (19:21)
[2023-06-05] MEDS: ENOXAPARIN INJ 40 MG/0.4 ML SYR SQ SCH (20:17)
[2023-06-06] MEDS: metroNIDAZOLE 500 MG/100 ML BAG IV SCH ×3 (01:29→16:33)
[2023-06-06] MEDS: HYDROmorphone INJ 0.5 MG/0.5 ML SYR IV PRN (01:45)
[2023-06-06] MEDS: HYDROmorphone INJ 1 MG/ML SYRINGE IV PRN ×5 (04:40→16:32)
[2023-06-06] MEDS: CIPROFLOXACIN / D5W 400 MG/200 ML BAG IV SCH ×2 (05:45→16:33)
[2023-06-06] MEDS: ONDANSETRON INJ 2 MG/ML 2 ML VIAL IV PRN ×2 (06:32→13:42)
--- NOTE | 2023-06-06 06:37 | Surgery Progress Note ---
Date of Service June 06, 2023 Assessment & Plan (1) S/P cholecystectomy: Plan: Patient with history of Intra-Op right hepatic bile duct transection Likely bile leak with drain placement and then removal Now with subhepatic fluid collection-possible continued bile leak For HIDA scan later today, for GI evaluation Continue IV antibiotics, may require more aggressive intervention which would require tertiary evaluation Admission and Anticipated Discharge Date Admission Date: June 03, 2023 Subjective Patient awake and alert Her abdomen is soft She does have persistent pain receiving IV Dilaudid She has tolerated some full liquids Review of Systems Review of Systems: All systems reviewed & are unremarkable except as noted in HPI & below Physical Exam Physical Exam: Patient is awake and alert In no distress Breathing comfortably Abdomen is soft but does have tenderness in the upper abdomen Extremities warm Results & Data Vital Signs (Past 12 Hours) Vital Signs Temp Pulse Resp BP Pulse Ox O2 Del Method 06/05/23 23:23 37.1 C 99 H 15 102/69 98 Room Air PG Care Time/CCT Total # of Minutes Spent Total Time Spent with Patient: Total time spent is greater than 50% in coordination of care (as documented) at patient's floor/unit and/or counseling patient: Coding Level of Care Code 58291 SUB INP/OBS CARE 1/25MIN Diagnoses S/P cholecystectomy Z90.49
[2023-06-06 08:41] LABS: Basophils # (auto) 0.03 K/uL (0.00-0.20); Basophils % (auto) 0.2 %; Eosinophils # (auto) 0.09 K/uL (0.00-0.50); Eosinophils % (auto) 0.6 %; Hematocrit (blood only) 28.3 % (37.0-47.0); Hemoglobin 9.2 g/dl (12.0-16.0); Immature Granulocytes # (auto) 0.07 K/uL (0.01-0.20); Immature Granulocytes % (auto) 0.5 %; Lymphocytes # (auto) 0.99 K/uL (1.20-3.40); Lymphocytes % (auto) 6.8 %; Mean Corpuscular Hgb Conc 32.5 g/dL (32.0-36.0); Mean Corpuscular Volume 92.2 fL (80.0-100.0); Mean Platelet Volume 9.9 fL (9.4-12.4); Monocytes # (auto) 1.45 K/uL (0.11-0.59); Monocytes % (auto) 9.9 %; Neutrophils # (auto) 11.97 K/uL (1.40-6.50); Platelet Count 383 K/uL (130-400); RDW Coefficient of Variation 13.2 % (11.5-14.5); RDW Standard Deviation 44.7 fL (36.4-46.3); Red Blood Count 3.07 M/uL (4.20-5.40)
[2023-06-06 09:07] LABS: Albumin Globulin Ratio 0.8 (0.9-2); Albumin Level 2.9 gm/dl (3.4-5.0); BUN Creatinine Ratio 12.7 (10-20); Bilirubin,Total 0.7 mg/dl (0.2-1.0); Calcium 8.1 mg/dl (8.6-10.3); Creatinine Clr Calc Pharmacy 169.7 ml/min; Est GFR (African American) 144.9 ml/min; Globulin 3.7 gm/dl (2.5-4.0); Potassium 3.9 mmol/L (3.5-5.1); Total Protein 6.6 gm/dl (6.0-8.3)
[2023-06-06] MEDS: D5NSS + 20MEQ KCL 20 MEQ/1,000 ML BAG IV SCH (09:59)
--- NOTE | 2023-06-06 13:22 | Nuclear Medicine Report ---
NM hepatobiliary CLINICAL HISTORY: 32 years-old Female with recent lap vika, bile leak. The right upper quadrant abd ominal pain status post cholecystectomy with common bile duct stent placement. TECHNIQUE: Sequential anterior abdominal images were obtained through 60 minutes following the intra venous administration of 4.9 mCi of technetium-99m Choletec. COMPARISON: CT 06/03/2023 FINDINGS: There is prompt, uniform accumulation of the tracer by the liver. No bile leak identified. Gallbladde r is surgically absent. No tracer activity identified within the common bile duct or small bowel thro ugh the 60 minute images. IMPRESSION: No scintigraphic evidence of a bile leak. ACT 112: Negative or not required by law. The above report was generated using voice recognition software. It may contain grammatical, syntax o r spelling errors. Electronically signed by: Jon Grover M.D. 06/06/2023 1:21 PM
--- NOTE | 2023-06-06 15:00 | Hospitalist Progress Note ---
Date of Service June 06, 2023 Assessment & Plan (1) Biloma following surgery: Plan: White blood cell count remains mildly elevated. She had cholecystectomy [address] scan reveals fluid in the gallbladder fossa with a common bile duct stent present. The gallbladder has been removed. This was done about 3 weeks ago at an outside hospital. Interventional radiology to place right upper quadrant drain today, June 05. She is now on intravenous Cipro and Flagyl. She was previously treated with intravenous Zosyn. day 3. Appreciate surgery and gastroenterology consultations and recommendations. (2) Postoperative intra-abdominal abscess: Plan: Right upper quadrant fluid collection in the gallbladder bed could be an abscess. She will need transfer to a tertiary care center for drainage procedure. (3) Urinary tract infection: Plan: Suspected on admission. Continue current IV antibiotic therapy. Await final urine culture results (4) Deaf: Plan: Supportive care (5) Tachycardia: Plan: Sinus mechanism. No intervention necessary at this time Plan Hopeful transfer to [facility] [place] for further treatment Admission and Anticipated Discharge Date Admission Date: June 03, 2023 Subjective Alert and oriented. Case discussed with general surgery and gastroenterology. HIDA scan does not reveal any evidence of active leakage but she has a known fluid collection in the gallbladder fossa that could be an abscess. White blood cell count remains elevated. She is tolerating the Cipro and Flagyl intravenously. IR and general surgery are both recommending transfer to a tertiary care center. The patient agrees to transfer to [facility]. Review of Systems Review of Systems: Constitutional-no fever or chills ENT-no blurred vision, no double vision, no epistaxis, no sore throat Respiratory-no cough, no wheezing, no shortness of breath Cardiac-no palpitations, no chest pain, no syncope GI-intermittent nausea after eating. No vomiting, diarrhea, melena, hemat ochezia -no urinary retention, no urinary incontinence, no dysuria, no hematuria Musculoskeletal-no joint pain, no muscle tenderness Skin-no bruising, no rashes, no pruritus Neuro-no isolated weakness, no paresthesia, no weakness Psych-no depression, no anxiety Physical Exam Physical Exam: General-alert and oriented x3, no fevers, no chills HEENT-head atraumatic and normocephalic, pupils equal and reactive to light, extraocular muscles intact. She is deaf Neck-no lymphadenopathy or thyromegaly, trachea midline Chest-clear to auscultation percussion. No rales wheezing or rhonchi Cardiac-slightly tachycardic regular rhythm, normal S1 and S2 Abdomen-normal bowel sounds, nontender, no hepatosplenomegaly Extremities-no cyanosis, clubbing, or edema Neuro-cranial nerves II through XII intact, motor and sensory function within normal limits, strength symmetrical , no focal deficits Psych-normal affect, normal mood Results & Data Results & Data Vital Signs (Past 12 Hours) Vital Signs Temp Pulse Resp BP Pulse Ox O2 Del Method 06/06/23 08:54 37.3 C 107 H 16 120/83 100 Room Air Laboratory Results 06/06/23 08:21 06/06/23 08:21 PG Care Time/CCT Total # of Minutes Spent Total Time Spent with Patient: Total time spent is greater than 50% in coordination of care (as documented) at patient's floor/unit and/or counseling patient: Coding Level of Care Code 74450 SUB INP/OBS CARE 3/50MIN Diagnoses Biloma following surgery T81.89XA; K66.8 Postoperative intra-abdominal abscess T81.43XA Urinary tract infection N39.0 Deaf H91.90 Tachycardia R00.0
--- NOTE | 2023-06-06 15:01 | Gastrointestinal Consultation ---
Date of Consultation June 06, 2023 Assessment & Plan (1) Abdominal fluid collection: (2) S/P cholecystectomy: Pt is a 32 yo female who is s/p cholecystomy at [facility], complicated by R hepatic duct transection, s/p biliary stent placement, MIKE drain removal; presented w RUQ abd pain, n/v. CT abd/pelvis showed complex and multilocated fluid collection along gallbladder fossa ? biloma vs abscess. HIDA negative for bile leak. - No indication for biliary intervention from GI standpoint - Recommend discussing w IR for possible fluid collection drainage and if it cannot be done in this facility, recommend transferring to tertiary care center vs back to [facility] - IV antibx and IVF support - Symptomatic management otherwise - GI to sign off; pls recall prn Supervising Physician Co-Signing Physician Notes I personally saw and evaluated the patient on 06/06/2023 with JENNYFER Syed and agree with her findings and plan of care. 32 y/o F with recent cholecystectomy at [facility] complicated by R hepatic duct transection with biliary stent placement and MIKE drain with subsequent removal admitted with abdominal pain. CT abd/pelvis showed complex and multilocated fluid collection along gallbladder fossa with concern for biloma vs. seroma vs. hematoma vs abscess. HIDA negative for bile leak. On exam she appears uncomfortable and is diffusely tender to palpation. Her wbc is 14k today. Hgb 9.2. AST 101, ALT 133, ALP 275, total bilirubin 0.7. No indication for ERCP as there is no evidence of a bile leak. We did discuss the case with Dr. Casey who felt even if there was a bile leak this would not be amenable to ERCP given R hepatic duct resection and she would need a hepaticojejunostomy. Recommend discussing with IR about sampling and drainage of the fluid collection seen on CT scan given concern for abscess. If unable to be done here she may need transferred somewhere that has that capability. Continue IV antibiotics for now. GI will sign off but please call back with questions. Barbara Rendon, DO Gastroenterology and Hepatology History of Present Illness Reason for Consultation: Possible bile leak Requesting Physician: Dr. Mike Frye Attending Physician: Dr. Barbara Rendon History of Present Illness Pt is a 32 yo female w hx of cholecystectomy on 05/15/2023 at [facility], complicated by transection of R hepatic duct and s/p biliary stent placement & MIKE drain removal. She presented w c/o n/v after having pizza and also RUQ abd pain. On eval, noted to have leukocytosis, elevated transaminases and CT abd/pelvis showed complex/multiloculated fluid collection along gallbladder fossa ? biloma vs abscess vs bile leak. HIDA scan this afternoon negative for bile leak. Pt still having RUQ abd pain and nausea on exam. 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 Beliefs That Will Affect Care: None Current Living Situation: Spouse Feels Safe at Home: Yes Safety Concerns: Feels Safe At This Time Assistive Devices: None Review of Systems Review of Systems: All systems reviewed & are unremarkable except as noted in HPI & below Physical Exam Constitutional: WD/WN, vitals as above well groomed and cooperative; + uncomfortable Eyes: PERRL, conjunctivae normal, anicteric sclerae ENMT: external ear and nose normal, oropharynx normal Respiratory: normal respiratory effort, lungs clear to auscultation Cardiovascular: RRR, no murmur, no edema Gastrointestinal (Abdomen): RUQ TTP, BS hypoactive, soft Skin: no rashes, warm and dry no jaundice Psychiatric: A+Ox3, euthymic affect Lymphatic: no lymphedema Results & Data Vital Signs (Past 12 Hours) Vital Signs Temp Pulse Resp BP Pulse Ox O2 Del Method 06/06/23 08:54 37.3 C 107 H 16 120/83 100 Room Air
--- NOTE | 2023-06-06 15:55 | Hospitalist Progress Note ---
Date of Service June 06, 2023 Assessment & Plan (1) Biloma following surgery: Plan: White blood cell count remains mildly elevated. She had cholecystectomy [address] scan reveals fluid in the gallbladder fossa with a common bile duct stent present. The gallbladder has been removed. This was done about 3 weeks ago at an outside hospital. Interventional radiology recommends transfer to tertiary care center for drainage tube placement. General surgery is in agreement. She is now on intravenous Cipro and Flagyl, day 2. She was previously treated with intravenous Zosyn. . Appreciate surgery and gastroenterology consultations and recommendations. (2) Postoperative intra-abdominal abscess: Plan: Right upper quadrant fluid collection in the gallbladder bed could be an abscess. She will need transfer to a tertiary care center for drainage procedure. (3) Urinary tract infection: Plan: Suspected on admission. Continue current IV antibiotic therapy. (4) Deaf: Plan: Supportive care (5) Tachycardia: Plan: Sinus mechanism. No intervention necessary at this time Plan Hopeful transfer to [facility] for further treatment Admission and Anticipated Discharge Date Admission Date: June 03, 2023 Subjective Alert and oriented. No new problems. HIDA scan does not reveal overt bile leak. Nonetheless, she has fluid collection in the right upper quadrant in the gallbladder bed that could be bile or abscess. I have discussed with the transfer Dr. Rothman at [facility] in [place] as to whether she can be transferred there for intervention. Awaiting his return call Review of Systems Review of Systems: Constitutional-no fever or chills ENT-no blurred vision, no double vision, no epistaxis, no sore throat Respiratory-no cough, no wheezing, no shortness of breath Cardiac-no palpitations, no chest pain, no syncope GI-intermittent nausea after eating. No vomiting, diarrhea, melena, hematochezia -no urinary retention, no urinary incontinence, no dysuria, no hematuria Musculoskeletal-no joint pain, no muscle tenderness Skin-no bruising, no rashes, no pruritus Neuro-no isolated weakness, no paresthesia, no weakness Psych-no depression, no anxiety Physical Exam Physical Exam: General-alert and oriented x3, no fevers, no chills HEENT-head atraumatic and normocephalic, pupils equal and reactive to light, extraocular muscles intact. She is deaf Neck-no lymphadenopathy or thyromegaly, trachea midline Chest-clear to auscultation percussion. No rales wheezing or rhonchi Cardiac-slightly tachycardic regular rhythm, normal S1 and S2 Abdomen-normal bowel sounds, no hepatosplenomegaly. Mildly tender in the right upper quadrant area. No rebound or guarding Extremities-no cyanosis, clubbing, or edema Neuro-cranial nerves II through XII intact, motor and sensory function within normal limits, strength symmetrical , no focal deficits Psych-normal affect, normal mood Results & Data Results & Data Vital Signs (Past 12 Hours) Vital Signs Temp Pulse Resp BP Pulse Ox O2 Del Method 06/06/23 08:54 37.3 C 107 H 16 120/83 100 Room Air Laboratory Results 06/06/23 08:21 06/06/23 08:21 PG Care Time/CCT Total # of Minutes Spent Total Time Spent with Patient: Total time spent is greater than 50% in coordination of care (as documented) at patient's floor/unit and/or counseling patient: Coding Level of Care Code 06598 SUB INP/OBS CARE 3/50MIN Diagnoses Biloma following surgery T81.89XA; K66.8 Postoperative intra-abdominal abscess T81.43XA Urinary tract infection N39.0 Deaf H91.90 Tachycardia R00.0
--- NOTE | 2023-06-06 17:19 | Discharge Summary ---
Date of Service June 06, 2023 Admission HPI Per Admitting Provider Darling is a 32-year-old patient with deafness who communicates via lipreading and sign language who presents with nausea/vomiting after eating pizza. She had a cholecystectomy 3 weeks ago this was her first greasy meal since that time. Loose bowel movements after patient did have issues with constipation following her cholecystectomy and had prolonged MIKE drains which were removed after 2 to 3 weeks. 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 No GIB. Vomiting without green/bile/blood [facility] with Ex Tasha with who she is on good terms and helps care for her, no family in [place] to help while she was recovering. No other medhx Medical History: Reviewed Medications: Reviewed Surgical History: Reviewed Family history: Reviewed Allergies: Reviewed Social History: No tobacco/etoh hx Code Status: Full Principal Diagnosis Right upper quadrant fluid collection status post laparoscopic cholecystectomy, possible biloma or abscess Discharge Exam General-alert and oriented x3, no fevers, no chills HEENT-head atraumatic and normocephalic, pupils equal and reactive to light, extraocular muscles intact. She is deaf Neck-no lymphadenopathy or thyromegaly, trachea midline Chest-clear to auscultation percussion. No rales wheezing or rhonchi Cardiac-slightly tachycardic regular rhythm, normal S1 and S2 Abdomen-normal bowel sounds, no hepatosplenomegaly. Mildly tender in the right upper quadrant area. No rebound or guarding Extremities-no cyanosis, clubbing, or edema Neuro-cranial nerves II through XII intact, motor and sensory function within normal limits, strength symmetrical , no focal deficits Psych-normal affect, normal mood Discharge Data Allergies Allergy/AdvReac Type Severity Reaction Status Date / Time No Known Allergies Allergy Unverified 06/03/23 15:54 Consultations 06/03/23 15:46 ED Decision to Admit Stat 06/05/23 16:12 Consult General Surgery Routine 06/05/23 16:47 Consult Gastroenterology Routine 06/06/23 14:29 Burn CD for patient Routine Ordered Studies 06/03/23 11:45 CT abd pelvis IV con only Stat Hospital Course (1) Biloma following surgery: White blood cell count remains mildly elevated. She had cholecystectomy [address] scan reveals fluid in the gallbladder fossa with a common bile duct stent present. The gallbladder has been removed. This was done about 3 weeks ago at an outside hospital. Interventional radiology recommends transfer to tertiary care center for drainage tube placement. General surgery is in agreement. She is now on intravenous Cipro and Flagyl, day 2. She was previously treated with intravenous Zosyn. . Appreciate surgery and gastroenterology consultations and recommendations. (2) Postoperative intra-abdominal abscess: Right upper quadrant fluid collection in the gallbladder bed could be an abscess. She will need transfer to a tertiary care center for drainage procedure. (3) Urinary tract infection: Suspected on admission. Continue current IV antibiotic therapy. (4) Deaf: Supportive care (5) Tachycardia: Sinus mechanism. No intervention necessary at this time Plan transfer to [facility] today, June 06, for further treatment Total Time Total Time Spent Total Time Spent (In Minutes): 45 minutes Discharge Plan Discharge Items Patient Disposition: Transfer Acute Care Hospital Reason For Visit: POST-SOREN BILIOMA VS ABSCESS Discharge Diagnosis: Bile leak post laparoscopic cholecystectomy. Right upper quadrant fluid collection could be biloma or abscess Activity: As commented below Activity Comment: Bedrest for now Non-emergency contact: Primary Care Provider Call non-emergency contact if: you have any medication questions and your symptoms worsen Follow-up/Referrals: PCP,NO [Primary Care Provider] - Diet: Full liquid Addtl Attending Provider Instructions: See your primary care provider after discharge from [facility] as soon as possible Pending Studies at Discharge: No Stand-Alone Forms: My [facility] Skilled Items Patient informed of condition?: Yes DNR: No Discharge Level of Care: Other Communicable Disease: No Discharge Prognosis: Stable Lines: Peripheral IV Urinary Catheter: No Medications and DC Order Prescriptions: New hydromorphone 0.5 mg/0.5 mL Syringe 0.5 mg IV Q3H PRNQty: 0 0RF enoxaparin [Lovenox] 40 mg/0.4 mL Syringe 40 mg subcut Q24H Qty: 0 0RF hydromorphone 1 mg/mL Syringe 1 mg IV Q3H PRNQty: 0 0RF ondansetron HCl (PF) 4 mg/2 mL Solution 4 mg IV Q6H PRNQty: 0 0RF Continued gabapentin 300 mg Capsule 300 mg PO Q8H cyclobenzaprine 10 mg Tablet 10 mg PO Q8H Discharge Orders: Discharge Order (Routine); Ordered 06/06/23 Ordered By: Mike Frye Admission Data Admit Date/Time: 06/03/23 16:37 Attending Provider: Mike Frye Admit Provider: Ricardo Denton Primary Care Provider: PCP,NO Other Providers: Ricardo Denton ; Mike Madrid ; Sophie Guillen ; Boo Rios ; Oscar Cohen ; Benigno Sharma ; Efe Moncada ; Lanny Garcia ; Nicola Redman ; Luisito Soria ; Lilia Ordaz ; Reggie Gustafson ; Yvon North ; Zheng Colvin ; Lupe Foy ; Joy Villalobos ; Sis Muir ; Ryann Prado ; Placido Cervantes ; Renato Chan ; Raoul Casey ; Rosio Carrero ; Mario Ortiz ; Saadia Zeng ; Veronique Ball ; Falguni Douglas ; Jerri Agosto ; Rafa Ruiz ; Dilip Dimas ; Aguilar Mckoy ; Barbara Rendon ; David Waller Jr Coding Level of Care Code 74852 INP/OBS DISCH >30 MIN Diagnoses Biloma following surgery T81.89XA; K66.8 Postoperative intra-abdominal abscess T81.43XA Urinary tract infection N39.0 Deaf H91.90 Tachycardia R00.0
[2023-06-06] MEDS: ACETAMINOPHEN 1,000 MG/100 ML VIAL IV PRN (18:30)
[2023-06-06] MEDS ORDERED: HYDROmorphone INJ 1 MG/ML SYRINGE IV PRN (18:55)
[2023-06-06] MEDS ORDERED: METOCLOPRAMIDE HCL INJ 5 MG/ML 2 ML VIAL IV STA (18:55)
[2023-06-06] MEDS: ENOXAPARIN INJ 40 MG/0.4 ML SYR SQ SCH (20:12)
== END 2023-06-06 21:00 | disposition short-term general hospital (02) | DRG 863 ==
LOC: ED 10:40 → SUATTDRO 16:37 → EDINP 16:37 → 3N 19:53